=== PATIENT | male | born 1975 | race Caucasian/White ===

== ENCOUNTER 2019-09-27 19:11 | Emergency (ER) | payer BC ==
--- NOTE | 2019-09-27 19:41 | EDM.PDOC ---
ED HPI GENERAL MEDICAL PROBLEM - General Chief Complaint: General Stated Complaint: Palpatations Time Seen by Provider: 09/27/19 19:20 Source of Information: Reports: Patient History Limitations: Reports: No Limitations - History of Present Illness INITIAL COMMENTS - FREE TEXT/NARRATIVE: He presents to the ED for evaluation of an irregular heartbeat. He states that over the past 2 weeks he has felt occasional irregular beat, or possibly that his heart is beating harder. He felt an irregular beat tonight and thought he should have it checked out. No chest pain or tightness. No dizziness or lightheadedness. No other symptoms associated with the irregular beat. He only feels it when at rest, and it resolves if he moves around. No history of cardiac problems. He does take Lipitor for high cholesterol. No recent illness. - Related Data Allergies Allergy/AdvReac Type Severity Reaction Status Date / Time No Known Allergies Allergy Verified 09/27/19 19:15 Home Meds: Home Meds Ibuprofen [Advil] 600 mg PO Q6HR PRN 09/27/19 [History] atorvaSTATin Calcium [Atorvastatin Calcium] 40 mg PO BEDTIME 09/27/19 [History] Social & Family History - Tobacco Use Smoking Status *Q: Never Smoker Second Hand Smoke Exposure: No - Caffeine Use Caffeine Use: Reports: Coffee, Soda - Alcohol Use Days Per Week of Alcohol Use: 1 Number of Drinks Per Day: 6 Total Drinks Per Week: 6 Date of Last Drink: 09/27/19 Time of Last Drink: 23:00 - Recreational Drug Use Recreational Drug Use: No ED ROS GENERAL - Review of Systems Review Of Systems: See Below Constitutional: Reports: No Symptoms HEENT: Reports: No Symptoms Respiratory: Reports: No Symptoms Cardiovascular: Reports: Palpitations. Denies: Blood Pressure Problem, Dyspnea on Exertion, Edema, Lightheadedness, Orthopnea, Syncope Endocrine: Reports: No Symptoms GI/Abdominal: Reports: No Symptoms : Reports: No Symptoms Musculoskeletal: Reports: No Symptoms Skin: Reports: No Symptoms Neurological: Reports: No Symptoms Psychiatric: Reports: No Symptoms Hematologic/Lymphatic: Reports: No Symptoms Immunologic: Reports: No Symptoms ED EXAM, GENERAL - Physical Exam Exam: See Below Exam Limited By: No Limitations General Appearance: Alert, WD/WN, No Apparent Distress Eye Exam: Bilateral Eye: EOMI, Normal Inspection, PERRL Ears: Normal External Exam, Normal Canal, Hearing Grossly Normal, Normal TMs Nose: Normal Inspection, Normal Mucosa, No Blood Throat/Mouth: Normal Inspection, Normal Lips, Normal Gums, Normal Oropharynx, Normal Voice, No Airway Compromise Head: Atraumatic, Normocephalic Neck: Supple, Non-Tender, Full Range of Motion Respiratory/Chest: No Respiratory Distress, Lungs Clear, Normal Breath Sounds Cardiovascular: Normal Peripheral Pulses, Regular Rate, Rhythm, No Edema, No Gallop, No Murmur, No Rub GI/Abdominal: Normal Bowel Sounds, Soft, Non-Tender, No Mass Neurological: Alert, Oriented, Normal Cognition Psychiatric: Normal Affect, Normal Mood Skin Exam: Warm, Dry Lymphatic: No Adenopathy EKG INTERPRETATION Rhythm: NSR P-Wave: Present QRS: Normal ST-T: Normal QT: Normal Comparison: NA - No Prior EKG Course - Vital Signs Last Recorded V/S: Last Vital Signs Temp 36.9 C 09/27/19 19:23 Pulse 91 09/27/19 20:38 Resp 15 09/27/19 20:38 BP 145/82 H 09/27/19 20:38 Pulse Ox 99 09/27/19 20:38 - Orders/Labs/Meds Orders: Active Orders 24 hr Category Date Time Status EKG Documentation Completion [RC] ASDIRECTED Care 09/27/19 19:25 Active EKG Documentation Completion [RC] STAT Care 09/27/19 19:25 Active Labs: Laboratory Tests 09/27/19 09/27/19 Range/Units 19:30 19:30 WBC 5.9 (4.0-10.2) K/uL RBC 4.86 (4.33-5.41) M/uL Hgb 14.5 (13.1-16.8) g/dL Hct 41.9 (39.0-49.0) % MCV 86.2 (84.0-98.0) fL MCH 29.8 (28.2-33.3) pg MCHC 34.6 (31.7-36.0) g/dL RDW 13.0 (11.2-14.1) % Plt Count 209 (150-350) K/uL Neut % (Auto) 68.1 (45.0-80.0) % Lymph % (Auto) 18.0 (10.0-50.0) % [place] % (Auto) 11.8 (2.0-14.0) % Eos % (Auto) 1.9 (0.0-5.0) % Baso % (Auto) 0.2 (0.0-2.0) % Neut # (Auto) 4.04 (1.40-7.00) K/uL Lymph # (Auto) 1.07 (0.50-3.50) K/uL [place] # (Auto) 0.70 (0.00-1.00) K/uL Eos # (Auto) 0.11 (0.00-0.50) K/uL Baso # (Auto) 0.01 (0.00-0.20) K/uL Sodium 147 H (136-145) mmol/L Potassium 4.0 (3.5-5.1) mmol/L Chloride 107 (98-107) mmol/L Carbon Dioxide 27.5 (21.0-32.0) mmol/L BUN 14 (7-18) mg/dL Creatinine 1.03 (0.51-1.17) mg/dL Est Cr Clr Drug Dosing 102.55 mL/min Estimated GFR (MDRD) > 60 mL/min Glucose 83 (74-106) mg/dL Calcium 9.3 (8.5-10.1) mg/dL Total Bilirubin 0.4 (0.2-1.0) mg/dL AST 23 (15-37) U/L ALT 58 (12-78) U/L Alkaline Phosphatase 80 (46-116) IU/L Creatine Kinase 98 (26-308) U/L Creatine Kinase Index 0.8 (0.0-2.5) % CK-MB (CK-2) 0.80 (0.00-3.60) ng/mL Troponin I 0.000 (0.000-0.056) ng/mL Total Protein 7.7 (6.4-8.2) g/dL Albumin 4.0 (3.4-5.0) g/dL Departure - Departure Time of Disposition: 20:10 Disposition: Home, Self-Care 01 Condition: Good Clinical Impression: Irregular heart beat - Discharge Information *PRESCRIPTION DRUG MONITORING PROGRAM REVIEWED*: No *COPY OF PRESCRIPTION DRUG MONITORING REPORT IN PATIENT MARK: No Instructions: Palpitations Referrals: Davida Bright PA-C [Primary Care Provider] - Forms: ED Department Discharge Additional Instructions: Follow up with primary MD with any further problems. Resume usual home medications. Sepsis Event Note - Evaluation Sepsis Screening Result: No Definite Risk - Focused Exam Date Exam was Performed: 09/28/19 Time Exam was Performed: 11:29 - Problem List & Annotations (1) Irregular heart beat SNOMED Code(s): 394063742 Code(s): I49.9 - CARDIAC ARRHYTHMIA, UNSPECIFIED Status: Acute Onset Date : ~09/13/19 - Problem List Review Problem List Initiated/Reviewed/Updated: Yes - My Orders Last 24 Hours: My Active Orders 09/27/19 19:25 EKG Documentation Completion [RC] ASDIRECTED EKG Documentation Completion [RC] STAT - Assessment/Plan Last 24 Hours: My Active Orders 09/27/19 19:25 EKG Documentation Completion [RC] ASDIRECTED EKG Documentation Completion [RC] STAT Assessment:: Irregular heartbeat. Plan: Follow up with primary MD if symptoms persist.
[2019-09-27 20:02] LABS: CHLORIDE,CL 107 mmol/L (98-107); SODIUM,NA 147 mmol/L (136-145)
== END 2019-09-27 20:25 | disposition home or self-care (01) ==
LOC: LL.ED 19:11
DX: R00.2 Palpitations (principal)
CPT/HCPCS: 36415; 80053; 82550; 82553; 84484; 85025; 93005; 99285-25

== ENCOUNTER 2024-03-21 07:47 | Day surgery (SDC) | payer BC ==
[2024-03-21] MEDS ORDERED: Sodium Chloride 0.9% 10 ML Syringe FLUSH PRN (08:00)
[2024-03-21] MEDS: Lactated Ringers 1,000 ML IV SCH (08:00)
[2024-03-21] MEDS ORDERED: Propofol 200 MG/20 ML SDV ONE ×2 (08:21→09:43)
== END 2024-03-21 10:03 | disposition home or self-care (01) ==
LOC: LL.SDS 07:47
PROVIDERS: ATTEND Surgery
DX: Z12.11 Encounter for screening for malignant neoplasm of colon (principal); D12.4 Benign neoplasm of descending colon; D12.5 Benign neoplasm of sigmoid colon; K57.30 Diverticulosis of large intestine without perforation or abscess without bleeding; E66.9 Obesity, unspecified; Z80.0 Family history of malignant neoplasm of digestive organs; Z79.82 Long term (current) use of aspirin; Z79.899 Other long term (current) drug therapy; Z68.32 Body mass index [BMI] 32.0-32.9, adult
CPT/HCPCS: 00811; J2704; J7120